=== PATIENT | female | born 1970 | race Two or more races ===

== ENCOUNTER 2022-09-02 10:10 | Inpatient (IN) ==
[2022-09-02 11:42] LABS: Basophils # 0.1 10*3/uL (0.0-0.2); Basophils % 0.3 % (0.0-0.8); Eosinophils % 0.1 % (0.00-10.9); Hematocrit 49.4 VOL% (35.7-47.0); Hemoglobin 16.1 GM/DL (12.0-16.0); Immature Granulocytes Absolute 0.15 #; Lymphocytes # 1.6 10*3/uL (1.4-4.0); Lymphocytes % 10.5 % (21.3-54.2); Mean Corpuscular HGB Conc 32.6 GM/DL (32-36); Mean Corpuscular Volume 95.4 FL (87-102); Mean Platelet Volume 10.5 FL (9.6-12.0); Monocytes % 6.3 % (1.7-12.7); Neutrophils % 81.8 % (38.7-73.9); Platelet Count 264 T/CUMM (130-400); Red Blood Count 5.18 MC/CUMM (3.8-5.5); Red Cell Distribution Width 12.5 % (9.3-17.3); White Blood Count 15.5 T/CUMM (4-12)
[2022-09-02 11:53] LABS: PT Patient Result 10.8 SECS (10.1-12.1)
[2022-09-02 12:05] LABS: Bilirubin,Total 0.6 MG/DL (0.20-1.00); Calcium 9.7 MG/DL (8.5-10.1); Potassium 4.7 MMOL/L (3.5-5.1); Total Protein 7.8 G/DL (6.4-8.2)
[2022-09-02 13:14] LABS: Bilirubin,Urine Small mg/dL (Negative); Blood, Urine Small mg/dL (Negative); Glucose,Urine (UA) 500 mg/dL (Negative); Ketones,Urine >=160 mg/dL (Negative); Nitrite,Urine Negative (Negative); Protein,Urine 100 mg/dL (Negative); Urine Appearance Clear (Clear); Urine Color Light Yellow (Yellow); Urine Specific Gravity >= 1.030 (1.001-1.035); Urine Urobilinogen 0.2 eU/dL (<2.0); Urine pH 5.5 (4.5-8.0)
[2022-09-02 13:19] LABS: Bacteria,Urine Occasional /HPF (Few); Mucus,Urine Occasional /LPF (Occasional); RBC,Urine 5 /HPF (0-4); Squamous Epithelial Cell,Urine Occasional /HPF (0-10)
[2022-09-02] MEDS ORDERED: SODIUM CHLORIDE 0.9% 1,000 ML IV STA ×2 (13:42→14:50)
[2022-09-02] MEDS ORDERED: PIPERACILLIN/TAZOBACTAM 3,375 MG in SODIUM CHLORIDE 0.9% 100 ML IV STA (14:09)
[2022-09-02] MEDS ORDERED: PIPERACILLIN/TAZOBACTAM 3,375 MG VIAL IV ONE (14:10)
[2022-09-02] MEDS ORDERED: KETOROLAC 15 MG/1 ML VIAL IV PRN (14:22)
[2022-09-02] MEDS ORDERED: HYDROmorphone 1 MG/1 ML SYRINGE IV PRN (14:22)
[2022-09-02] MEDS ORDERED: ONDANSETRON 4 MG/2 ML VIAL IV PRN (14:22)
[2022-09-02] MEDS ORDERED: ACETAMINOPHEN 325 MG TABLET PO PRN (14:22)
[2022-09-02] MEDS ORDERED: BISACODYL 5 MG TABLET PO PRN (14:22)
[2022-09-02] MEDS ORDERED: INSULIN REGULAR 100 UNIT/ML IV STA (14:27)
[2022-09-02] MEDS ORDERED: LACTATED RINGERS 1,000 ML IV SCH (14:30)
[2022-09-02] MEDS ORDERED: KETOROLAC 30 MG/1 ML VIAL IV STA (14:32)
[2022-09-02] MEDS ORDERED: MAGNESIUM SULF RIDER 2 GM/50 ML PREMIX IV PRN (14:47)
[2022-09-02] MEDS ORDERED: SODIUM CHLORIDE 0.9% IV PRN (14:47)
[2022-09-02] MEDS ORDERED: MAGNESIUM SULF RIDER 4 GM/100 ML PREMIX IV PRN (14:47)
[2022-09-02] MEDS ORDERED: SODIUM PHOSPHATE IV PRN (14:47)
[2022-09-02] MEDS ORDERED: SODIUM CHLORIDE 0.9% 1,000 ML IV ONE (14:47)
[2022-09-02] MEDS ORDERED: DEXTROSE 10% 250 ML BAG IV PRN ×2 (14:54→14:55)
[2022-09-02 15:08] LABS: Phosphorous 3.9 MG/DL (2.5-4.9)
[2022-09-02 15:24] LABS: Osmolality,Calculated 290.1 MOS/KG (273-304)
[2022-09-02] MEDS: INSULIN REGULAR DRIP 100 ML IV SCH (15:57)
[2022-09-02] MEDS: VANCOMYCIN INJ 1,500 MG in SODIUM CHLORIDE 0.9% 500 ML IV SCH (15:57)
[2022-09-02] MEDS ORDERED: SODIUM CHLORIDE 0.9% 1,000 ML IV SCH ×2 (16:00→20:00)
[2022-09-02] MEDS: SODIUM CHLORIDE 0.9% 1,000 ML IV SCH (18:23)
[2022-09-02] MEDS: DEXTROSE 5% NACL 0.9% 1,000 ML IV SCH ×2 (18:23→23:34)
[2022-09-02 18:54] LABS: Bilirubin,Urine Small mg/dL (Negative); Blood, Urine Small mg/dL (Negative); Glucose,Urine (UA) 500 mg/dL (Negative); Ketones,Urine >=160 mg/dL (Negative); Nitrite,Urine Negative (Negative); Protein,Urine 100 mg/dL (Negative); Urine Appearance Clear (Clear); Urine Color Yellow (Yellow); Urine Specific Gravity >= 1.030 (1.001-1.035); Urine Urobilinogen 0.2 eU/dL (<2.0); Urine pH 5.5 (4.5-8.0)
[2022-09-02 18:58] LABS: Bacteria,Urine Occasional /HPF (Few); Mucus,Urine Occasional /LPF (Occasional); RBC,Urine 5 /HPF (0-4)
[2022-09-02 20:41] LABS: Calcium 7.2 MG/DL (8.5-10.1); Osmolality,Calculated 328.7 MOS/KG (273-304); Potassium 3.1 MMOL/L (3.5-5.1)
[2022-09-02] MEDS: PIPERACILLIN/TAZOBACTAM 3,375 MG in SODIUM CHLORIDE 0.9% 100 ML IV SCH (22:00)
[2022-09-02 23:28] LABS: Calcium 8.7 MG/DL (8.5-10.1); Osmolality,Calculated 291.1 MOS/KG (273-304); Potassium 3.3 MMOL/L (3.5-5.1)
[2022-09-03] MEDS: SODIUM CHLOR 0.9% KCL 20 MEQ 20 MEQ/1,000 ML BAG IV SCH ×3 (00:34→10:24)
[2022-09-03] MEDS: VANCOMYCIN INJ 1,500 MG in SODIUM CHLORIDE 0.9% 500 ML IV SCH ×2 (02:07→15:16)
[2022-09-03 02:29] LABS: Basophils % 0.2 % (0.0-0.8); Eosinophils % 0.3 % (0.00-10.9); Hematocrit 38.7 VOL% (35.7-47.0); Hemoglobin 13.1 GM/DL (12.0-16.0); Immature Granulocytes % 0.4 %; Immature Granulocytes Absolute 0.05 #; Lymphocytes # 1.4 10*3/uL (1.4-4.0); Lymphocytes % 11.8 % (21.3-54.2); Mean Corpuscular HGB Conc 33.9 GM/DL (32-36); Mean Corpuscular Volume 91.1 FL (87-102); Mean Platelet Volume 9.9 FL (9.6-12.0); Monocytes # 1.2 10*3/uL (0.11-0.8); Monocytes % 10.6 % (1.7-12.7); Neutrophils % 76.7 % (38.7-73.9); Platelet Count 200 T/CUMM (130-400); Red Blood Count 4.25 MC/CUMM (3.8-5.5); Red Cell Distribution Width 12.6 % (9.3-17.3); White Blood Count 11.4 T/CUMM (4-12)
[2022-09-03 02:47] LABS: Phosphorous 1.1 MG/DL (2.5-4.9)
[2022-09-03 02:47] LABS: Calcium 8.8 MG/DL (8.5-10.1); Osmolality,Calculated 289.7 MOS/KG (273-304)
[2022-09-03] MEDS: DEXT 5% NACL 0.45% KCL 20 MEQ 20 MEQ/1,000 ML BAG IV SCH ×3 (03:10→18:49)
[2022-09-03] MEDS: POTASSIUM CHLORIDE RIDER 10 MEQ/100 ML PREMIX IV PRN ×9 (03:15→23:53)
[2022-09-03 05:29] LABS: Calcium 8.8 MG/DL (8.5-10.1); Potassium 3.2 MMOL/L (3.5-5.1)
[2022-09-03] MEDS: PIPERACILLIN/TAZOBACTAM 3,375 MG in SODIUM CHLORIDE 0.9% 100 ML IV SCH ×3 (05:42→21:52)
[2022-09-03] MEDS: LEVOTHYROXINE 50 MCG TABLET PO SCH (05:43)
[2022-09-03] MEDS: INSULIN REGULAR DRIP 100 ML IV SCH ×3 (05:47→18:50)
[2022-09-03] MEDS: DEXTROSE 5% NACL 0.9% 1,000 ML IV SCH ×2 (07:05→10:25)
[2022-09-03] MEDS: SODIUM CHLORIDE 0.9% 1,000 ML IV SCH ×2 (07:05→11:12)
[2022-09-03 07:40] LABS: Calcium 8.8 MG/DL (8.5-10.1); Osmolality,Calculated 288.7 MOS/KG (273-304); Potassium 3.2 MMOL/L (3.5-5.1)
[2022-09-03] MEDS: PANTOPRAZOLE 40 MG TABLET PO SCH (09:14)
[2022-09-03] MEDS: ATORVASTATIN 40 MG TABLET PO SCH (09:14)
[2022-09-03] MEDS: SODIUM CHLORIDE 0.45% 1,000 ML IV SCH ×2 (10:24→15:21)
[2022-09-03 11:30] LABS: Calcium 8.9 MG/DL (8.5-10.1); Potassium 3.4 MMOL/L (3.5-5.1)
[2022-09-03] MEDS: HYDROmorphone 1 MG/1 ML SYRINGE IV PRN (13:14)
[2022-09-03 15:44] LABS: Calcium 9.3 MG/DL (8.5-10.1); Osmolality,Calculated 285.8 MOS/KG (273-304); Potassium 3.5 MMOL/L (3.5-5.1)
[2022-09-03] MEDS ORDERED: LIDOCAINE 2% 5 ML VIAL ONE (15:56)
[2022-09-03] MEDS ORDERED: fentaNYL 100 MCG/2 ML VIAL ONE (15:56)
[2022-09-03] MEDS ORDERED: propofoL 200 MG/20 ML VIAL IV ONE (15:56)
[2022-09-03] MEDS ORDERED: MIDAZOLAM 2 MG/2 ML VIAL ONE (15:59)
[2022-09-03] MEDS ORDERED: BUPIVACAINE MPF 0.25% 10 ML VIAL ONE (16:05)
[2022-09-03] MEDS ORDERED: LIDOCAINE 1% 5 ML VIAL ONE (16:05)
[2022-09-03] MEDS ORDERED: MEPERIDINE 25 MG/1 ML VIAL IV PRN (16:55)
[2022-09-03] MEDS ORDERED: ONDANSETRON 4 MG/2 ML VIAL IV PRN (16:55)
[2022-09-03] MEDS ORDERED: HYDROmorphone 1 MG/1 ML SYRINGE IV PRN (16:55)
[2022-09-03] MEDS ORDERED: PROMETHAZINE INJ 25 MG in SODIUM CHLORIDE 0.9% 50 ML IV PRN (16:55)
[2022-09-03] MEDS ORDERED: diphenhydrAMINE 50 MG/1 ML VIAL IV PRN (16:55)
[2022-09-03] MEDS ORDERED: ONDANSETRON 4 MG/2 ML VIAL ONE (17:47)
[2022-09-03] MEDS ORDERED: SEVOFLURANE 1 UNIT/15 MINUTE INH ONE (17:47)
[2022-09-03 20:28] LABS: Calcium 8.9 MG/DL (8.5-10.1); Osmolality,Calculated 283.8 MOS/KG (273-304); Potassium 3.3 MMOL/L (3.5-5.1)
[2022-09-04] MEDS: POTASSIUM CHLORIDE RIDER 10 MEQ/100 ML PREMIX IV PRN ×4 (00:54→08:06)
[2022-09-04] MEDS: INSULIN REGULAR DRIP 100 ML IV SCH (01:15)
[2022-09-04] MEDS: VANCOMYCIN INJ 1,500 MG in SODIUM CHLORIDE 0.9% 500 ML IV SCH ×2 (02:00→14:54)
[2022-09-04] MEDS: DEXT 5% NACL 0.45% KCL 20 MEQ 20 MEQ/1,000 ML BAG IV SCH (02:27)
[2022-09-04 05:47] LABS: Calcium 8.9 MG/DL (8.5-10.1); Osmolality,Calculated 283.8 MOS/KG (273-304); Phosphorous 0.6 MG/DL (2.5-4.9); Potassium 3.4 MMOL/L (3.5-5.1)
[2022-09-04] MEDS: PIPERACILLIN/TAZOBACTAM 3,375 MG in SODIUM CHLORIDE 0.9% 100 ML IV SCH ×3 (05:59→21:00)
[2022-09-04] MEDS: LEVOTHYROXINE 50 MCG TABLET PO SCH (06:02)
[2022-09-04 06:20] VITALS: BP 85/53
[2022-09-04] MEDS: ATORVASTATIN 40 MG TABLET PO SCH (09:04)
[2022-09-04] MEDS: PANTOPRAZOLE 40 MG TABLET PO SCH (09:04)
[2022-09-04] MEDS ORDERED: INSULIN GLARGINE 100 UNIT/ML SUBCUT SCH (09:36)
[2022-09-04] MEDS ORDERED: POTASSIUM CHLORIDE 20 MEQ TABLET PO ONE (09:38)
[2022-09-04] MEDS: PIOGLITAZONE 15 MG TABLET PO SCH (09:51)
[2022-09-04] MEDS: glipiZIDE 10 MG TABLET PO SCH ×2 (09:52→17:16)
[2022-09-04] MEDS: SODIUM CHLORIDE 0.45% 1,000 ML IV SCH ×2 (09:58→09:59)
[2022-09-04] MEDS: INSULIN REGULAR 100 UNIT/ML SUBCUT SCH ×3 (12:47→21:01)
[2022-09-05] MEDS: VANCOMYCIN INJ 1,500 MG in SODIUM CHLORIDE 0.9% 500 ML IV SCH ×2 (03:20→15:43)
[2022-09-05] MEDS: PIPERACILLIN/TAZOBACTAM 3,375 MG in SODIUM CHLORIDE 0.9% 100 ML IV SCH ×2 (05:56→15:33)
[2022-09-05] MEDS: LEVOTHYROXINE 50 MCG TABLET PO SCH (05:57)
[2022-09-05 06:44] LABS: Calcium 8.4 MG/DL (8.5-10.1); Osmolality,Calculated 287.1 MOS/KG (273-304); Potassium 3.2 MMOL/L (3.5-5.1)
[2022-09-05] MEDS: HYDROmorphone 1 MG/1 ML SYRINGE IV PRN (07:22)
[2022-09-05] MEDS ORDERED: POTASSIUM CHLORIDE 20 MEQ TABLET PO ONE (08:25)
[2022-09-05] MEDS: glipiZIDE 10 MG TABLET PO SCH (08:38)
[2022-09-05] MEDS: PANTOPRAZOLE 40 MG TABLET PO SCH (08:39)
[2022-09-05] MEDS: PIOGLITAZONE 15 MG TABLET PO SCH (08:40)
[2022-09-05] MEDS: ATORVASTATIN 40 MG TABLET PO SCH (08:40)
[2022-09-05] MEDS: INSULIN REGULAR 100 UNIT/ML SUBCUT SCH ×2 (08:43→13:17)
[2022-09-05] MEDS ORDERED: INSULIN GLARGINE 100 UNIT/ML SUBCUT SCH (09:00)
[2022-09-05] MEDS ORDERED: SODIUM HYPOCHLORITE 0.25% IRRIG 473 ML BOTTLE TOP SCH (09:00)
== END 2022-09-05 15:30 | disposition home or self-care (01) | DRG 264 ==
LOC: N.ED 10:10 → N.ICU 14:31
PROVIDERS: ADMIT Surgery; ATTEND Surgery